=== PATIENT | female | born 1990 | race Hispanic/Latino ===

== ENCOUNTER 2017-12-10 18:54 | Day surgery (SDC) | payer OTHER ==
[2017-12-10 19:28] VITALS: BMI 58.8
[2017-12-10 19:29] VITALS: BP 137/68; TEMP 98.2
--- NOTE | 2017-12-11 05:26 | PRG ---
DATE OF SERVICE: 12/10/2017 OB ER ENCOUNTER PRIMARY OB: Out of town in [place] CHIEF COMPLAINT: Decreased movement. HISTORY OF PRESENT ILLNESS: The patient is a 27-year-old, G2, P1 female with an intrauterine pregnan cy at 23 weeks and 6 days presents to Labor and Delivery with a 1-day history of decreased move ment. The patient reports that she is accustomed to have feeling the baby move a lot after she drink s cold water and did not feel that happened today. The patient denies any leakage of fluid or vagina l bleeding. Denies fall, fever, headache, chest pain. The patient reports shortness of breath that she attributes just to the . She reports nausea, denies vomiting, denies diarrhea, reports constipation. Denies any vaginal bleeding or leakage of fluid, any urinary urgency or frequency. Th e patient also reports that she has been having episodes of dizziness with movement, particularly fro m a seated to standing or standing to lying positions or turning quickly while standing. The patient reports that these episodes last for only seconds. She denies any heart palpitations, racing heart, chest pain or persistent symptoms with period. The patient also reports she has been having some bi lateral pelvic pain that is sharp and present with activity and movement such as getting out of bed, climbing stairs and other activities. PAST MEDICAL HISTORY: Morbid obesity, history of gestational diabetes. PAST SURGICAL HISTORY: Prior x1. ALLERGIES: No known drug allergies. MEDICATIONS: vitamins. OB LABS: Unavailable. REVIEW OF SYSTEMS: Per HPI. PHYSICAL EXAMINATION: VITAL SIGNS: Blood pressure 137/60, heart rate of 74, respiratory rate 18, temperature 98.2. GENERAL: She appears to be in no acute distress. She is alert and oriented, cooperative and pleasan t to interact with. HEENT: Head, normocephalic, atraumatic. LUNGS: Clear to auscultation bilaterally. HEART: Regular rate and rhythm. ABDOMEN: Gravid, soft, nontender. EXTREMITIES: Nontender. GENITOURINARY: Has been deferred. Dopplers have the baby in the 140s. We were able to reproduce th e pain with deviation of the uterus with the pain worse on the left side. ASSESSMENT AND PLAN: The patient is a 27-year-old female, who presented with an intrauterine pregnan cy at 23 weeks with musculoskeletal pain and decreased movement. Patient reports that baby was moving quite well when she got here and had the monitors placed, and patient has been counseled that her pelvic pains are musculoskeletal and likely not any concern for her or the baby status . She has been counseled to rest as needed, Tylenol 1 gram 3 times a day may be helpful. The dizzin ess, the patient has been counseled that the middle part of her is most common to have some sluggish vascular responses. The patient has been counseled to be more slow to move and get up and laid down until she is adjusting to new positions. The patient has also been counseled that the dizz iness that she has been experiencing lasting seconds at a time is likely due to just physiologic thompson ges of . In our conversation, the patient reports that she is drinking 3 caffeinated sodas a day at least, coffee at times, and this may also be contributing as she may be wasting important co mponent of her vascular space. The patient has been counseled to refrain from caffeine. The patient has also been counseled to follow up with her primary OB as scheduled and to notify him should the d izziness persist or worsen.
== END 2017-12-10 20:55 | disposition home or self-care (01) ==
LOC: L&D/OP 18:54
PROVIDERS: ATTEND Obstetrics & Gynecology
DX: O99.89 Other specified diseases and conditions complicating pregnancy, childbirth and the puerperium (principal); R10.2 Pelvic and perineal pain; R42 Dizziness and giddiness; E66.01 Morbid (severe) obesity due to excess calories; Z98.890 Other specified postprocedural states; Z3A.23 23 weeks gestation of pregnancy; Z68.43 Body mass index [BMI] 50.0-59.9, adult
CPT/HCPCS: 36416; 99282

== ENCOUNTER 2018-11-25 21:45 | Emergency (ER) | payer OTHER | END 2018-11-25 22:17 | disposition left against medical advice (07) | LOC: ERS 21:45 | DX: Z53.21 Procedure and treatment not carried out due to patient leaving prior to being seen by health care provider (principal) ==

== ENCOUNTER 2019-06-27 23:50 | Emergency (ER) | payer OTHER, SELFPAY ==
[2019-06-27] MEDS ORDERED: Acetaminophen 500 MG TAB ONE (23:57)
[2019-06-28] MEDS ORDERED: Ibuprofen 800 MG TAB ONE (00:49)
== END 2019-06-28 01:20 | disposition home or self-care (01) ==
LOC: ERS 23:50
DX: B34.9 Viral infection, unspecified (principal)
CPT/HCPCS: 99283

== ENCOUNTER 2020-03-12 07:22 | Outpatient (CLI) | payer MEDICAID | END 2020-03-12 07:23 | disposition home or self-care (01) | LOC: BICULT 07:22 | PROVIDERS: ATTEND Nurse Practitioner Women's Health | DX: R10.2 Pelvic and perineal pain (principal); N83.02 Follicular cyst of left ovary | CPT/HCPCS: 76856 ==